=== PATIENT | female | born 1980 | race African-American/Black ===

== ENCOUNTER 2023-11-04 12:16 | Emergency (ER) | payer OTHER, SELFPAY ==
--- NOTE | ~2023-11-04 | CT_ITS ---
EXAMINATION: CT brain wo con DATE: 11/04/2023 12:53 INDICATION: Headache TECHNIQUE: Computed tomography (CT) of the head was performed without intravenous contrast. The dose- length product was 605.33 mGy-cm. Automated exposure control and iterative reconstruction technique w ere employed. COMPARISON: None FINDINGS: No acute intracranial hemorrhage, infarction, mass or mass effect. No ventriculomegaly or m idline shift. Basilar cisterns are patent. Paranasal sinuses and mastoids are pneumatized. No depress ed skull fractures. Midline sagittal images demonstrate a normal corpus callosum and craniovertebral junction. IMPRESSION: 1. No acute intracranial abnormality. Reviewed, dictated and finalized at location [facility] [employer]
[2023-11-04 12:35] VITALS: BP 158/73; PULSE 70; RESP 18; TEMP 36.7; O2SAT 100
--- NOTE | 2023-11-04 12:42 | PC.NURSE ---
Symptoms reviewed with Dr. Camelia Fernando, VO CT received
[2023-11-04 14:45] VITALS: BP 149/76; PULSE 66; RESP 18; O2SAT 100
--- NOTE | 2023-11-04 16:47 | ED.GENADULT ---
HPI - General Adult General Chief complaint: Dizziness Stated complaint: light headed, blurry vision, headache Time Seen by Provider: 11/04/23 16:47 History of Present Illness HPI narrative: 42-year-old female with history of migraines presenting to the emergency department for a 20 minute episode of blurred vision followed by a headache. Patient states she was at work when she had onset of the visual changes. Patient describes flashing lights that are similar to her previous auras. Patient states after the visual changes resolve she had onset of a headache that was identical to her previous. Since the headache began she feels that it is beginning to improve. Patient denies any associated numbness or weakness. Patient denies any current visual change. Patient does still have a headache. Patient reports she does get multiple migraine headaches a year. Related Data Allergies Allergy/AdvReac Type Severity Reaction Status Date / Time No Known Allergies Allergy Mild Verified 05/07/14 13:53 Review of Systems Review of Systems: All systems reviewed & are unremarkable except as noted in HPI and below Exam Narrative: APPEARANCE: Well appearing, no pain, no distress, well-nourished. HEAD: normocephalic, atraumatic. EYES: Normal visual field NOSE: Normal no drainage EARS:TMS clear with good light reflex. THROAT: Pharynx clear, no exudate. NECK: Supple. No adenopathy, no masses. RESPIRATORY: Airway patent, respirations nonlabored. Clear to auscultation bilaterally, no rales, rhonchi, wheezing. NEURO: normal comprehensive neuro exam with normal forward and backward tandem gait, negative Romberg, normal visual field SKIN: Warm, dry. Normal Color Course Course Emergency Course: 42-year-old female presenting ED for evaluation for visual changes and headache. Patient states that the visual changes resolved. Patient does still have a headache. Patient had a head CT ordered from triage and head CT was negative for acute intracranial abnormality. Patient's headache was treated with Toradol and patient Was asked to wait in the waiting room. shortly after being treated with Toradol patient states that her headache is relieved and patient is requesting discharge to home. Patient was encouraged of close follow-up with her primary care physician and she was also educated on reasons to return to the emergency department. Vital Signs Vital signs: Vital Signs Temperature 98.1 F 11/04/23 12:35 Pulse Rate 70 11/04/23 12:35 Respiratory Rate 18 11/04/23 12:35 Blood Pressure 158/73 H 11/04/23 12:35 Pulse Oximetry 100 11/04/23 12:35 Oxygen Delivery Room Air 11/04/23 12:35 Temperature 98.1 F 11/04/23 12:35 Pulse Rate 71 11/04/23 17:29 Respiratory Rate 16 11/04/23 17:29 Blood Pressure 151/72 H 11/04/23 17:29 Pulse Oximetry 99 11/04/23 17:29 Oxygen Delivery Room Air 11/04/23 12:35 Medical Decision Making Differential Diagnosis Differential Diagnosis: Migraine, headache, ocular migraine, TiA, CVA Vital Signs Vital Signs: Vital Signs Temperature 98.1 F 11/04/23 12:35 Pulse Rate 70 11/04/23 12:35 Respiratory Rate 18 11/04/23 12:35 Blood Pressure 158/73 H 11/04/23 12:35 Pulse Oximetry 100 11/04/23 12:35 Oxygen Delivery Room Air 11/04/23 12:35 Temperature 98.1 F 11/04/23 12:35 Pulse Rate 71 11/04/23 17:29 Respiratory Rate 16 11/04/23 17:29 Blood Pressure 151/72 H 11/04/23 17:29 Pulse Oximetry 99 11/04/23 17:29 Oxygen Delivery Room Air 11/04/23 12:35 Imaging Data Radiologist's impression: Impressions Head CT 11/04/23 13:01 IMPRESSION: 1. No acute intracranial abnormality. Discharge Plan Discharge Clinical Impression: Migraine with aura Patient Disposition: Home, Self-Care Condition: Stable Instructions: Antibiotic Form, Migraine Headache (ED) Additional Instructions: have close follow-up
[2023-11-04] MEDS: KETOROLAC 30 MG/ML VIAL (*BKC) IM (16:51)
[2023-11-04 17:29] VITALS: BP 151/72; PULSE 71; RESP 16; O2SAT 99
== END 2023-11-04 17:30 | disposition home or self-care (01) ==
PROVIDERS: Emergency Provider Emergency Medicine
DX: G43.109 Migraine with aura, not intractable, without status migrainosus (principal)
CPT/HCPCS: 70450; 96372; 99284; J1885